=== PATIENT | male | born 1970 | race Caucasian/White ===

== ENCOUNTER 2019-03-02 13:22 | Inpatient (IN) | payer SELFPAY ==
[2019-03-02] MEDS ORDERED: Diltiazem 125 MG in Sodium Chloride 0.9% 100 ML IVPB SCH ×2 (14:15→16:30)
--- NOTE | 2019-03-02 14:25 | RAD ---
CHEST 1 VIEW PORTABLE: Date: 03/02/19 HISTORY: Dyspnea. Seizure. Left-sided deficits. FINDINGS: Mild right hemidiaphragm elevation with some associated vascular crowding. No confluent pneumonia, ov ert edema, or pleural effusion. IMPRESSION: Mild right hemidiaphragm elevation with minimal right lower lobe vascular crowding. No pneumonia, parul ma, or other significant acute process. POS: [facility]
[2019-03-02 14:32] LABS: #Basophils 0.1 thou/uL (0.0-0.2); #Eosinphils 0.3 thou/uL (0.0-0.7); #Lymphocytes 2.4 thou/uL (1.20-3.40); #Monocytes 0.6 thou/uL (0.11-0.59); #Neutrophils 4.7 thou/uL (1.40-6.50); %Basophils 0.9 % (0.0-1.0); %Eosinophils 4.1 % (0.0-10.0); %Lymphocytes 29.3 % (21.0-51.0); %Monocytes 7.5 % (0.0-10.0); %Neutrophils 58.2 % (42.0-75.0); Hemoglobin 15.6 g/dL (14.0-18.0); Mean Corpuscular HGB CONC 35.1 g/dL (32.0-36.0); Mean Corpuscular Hemoglobin 31.7 pg (27.0-31.0); Mean Corpuscular Volume 90.2 fL (78.0-98.0); Mean Platelet Volume 7.8 fL (7.4-10.4); Platelet Count 267 thou/uL (130-400); RBC Distribution Width 12.3 % (11.5-14.5); Red Blood Cell (RBC) Count 4.93 mill/uL (4.70-6.10); White Blood Cell (WBC) Count 8.1 thou/uL (4.8-10.8)
[2019-03-02 14:52] LABS: ALT (SGPT) 48 U/L (8-55); AST (SGOT) 30 U/L (5-34); Albumin 4.1 g/dL (3.5-5.0); Alkaline Phosphatase 89 U/L (40-110); Anion Gap 13 mmol/L (10-20); BUN (Urea Nitrogen) 10 mg/dL (8.9-20.6); Bilirubin, Total 0.3 mg/dL (0.2-1.2); CK (CPK) 152 U/L (30-200); Calc. Creatinine Clearance 0 mL/min (70-130); Calcium 8.7 mg/dL (7.8-10.44); Carbon Dioxide 20 mmol/L (22-29); Chloride 109 mmol/L (98-107); Estimated GFR-MDRD 79; Globulin 3.2 g/dL (2.4-3.5); Glucose 113 mg/dL (70-105); Protein, Total 7.3 g/dL (6.0-8.3); Sodium 138 mmol/L (136-145)
[2019-03-02] MEDS ORDERED: Enoxaparin Sodium 100 MG/ML SYRINGE ONE (15:41)
[2019-03-02] MEDS ORDERED: Bisacodyl 10 MG SUPP PR PRN (16:20)
[2019-03-02] MEDS ORDERED: Lorazepam 2 MG/ML VIAL SLOW IVP PRN (16:20)
[2019-03-02] MEDS ORDERED: Senokot S 8.6-50 MG TAB PO PRN (16:20)
--- NOTE | 2019-03-02 17:19 | HP ---
REASON FOR ADMISSION: New onset atrial fibrillation with RVR, partial complex seizure. 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 While he was there, the patient had focal seizures, which start with his face and affect left side extremities. This lasted for nearly 3 minutes. The patient was postictal and was not responding for nearly 7 or 8 minutes after that. He usually is awake during his seizures. 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 He had a redo surgery a year later, the 1st one was in [facility] and 2nd one was in [place]. Post these procedures, the patient has had focal seizures. EMS was summoned as his postictal state lasted for 7 to 8 minutes, which is very unusual for him, and on arrival here, the patient was found to be in atrial fibrillation with RVR. He has never had atrial fibrillation in the past. He was given Cardizem push 20 mg IV x2 and was started on 5 mg an hour drip along with one dose of Lovenox 1 mg/kg. He is currently fully oriented, moves all 4 extremities. He had slight numbness in his left lower extremity, which is slowly resolving. He has annual MRIs and follows up with neuro-oncologist in [place]. The last followup was one month back. Last MRI was in August of 2018 with no changes seen. 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 He received focal radiation for nearly 30 days after the 2nd surgery in [place]. Focal seizures, which affect left side post surgery 14 years back on his brain. CURRENT MEDICATIONS: Zonisamide 200 mg twice daily. ALLERGIES: TO CODEINE, WHICH CAUSES HIVES. PERSONAL HISTORY: Does not abuse drugs or smoke. Drinks alcohol on social occasions. Lives with his , Mrs. Pickard. Has 2 sons. FAMILY HISTORY: Mother is living and has had history of CVA. Father in his 50s with massive AK. CODE STATUS: Full. Power of ip attorney is his , Mrs. Pickard. Number to reach her is [phone]. REVIEW OF SYSTEMS: CONSTITUTIONAL: Negative for weight loss or gain, ability to conduct usual activities. SKIN: Negative for rash, itching. EYES: Negative for double vision, pain. ENT/MOUTH: Negative for nose bleeding, neck stiffness, pain, tenderness. CARDIOVASCULAR: Negative for palpitations, dyspnea on exertion, orthopnea. RESPIRATORY: Negative for shortness of breath, wheezing, cough, hemoptysis, fever or night sweats. GASTROINTESTINAL: Negative for poor appetite, abdominal pain, heartburn, nausea , vomiting, constipation, or diarrhea. GENITOURINARY: Negative for urgency, frequency, dysuria, nocturia. MUSCULOSKELETAL: Negative for pain, swelling. NEUROLOGIC/PSYCHIATRIC: Negative for anxiety, depression. ALLERGY/IMMUNOLOGIC: Negative for skin rash, bleeding tendency. PHYSICAL EXAMINATION: GENERAL: The patient is a 48-year-old male, who is currently not in any acute distress. VITAL SIGNS: Blood pressure 106/94; pulse on arrival was 159, currently around 96; respiratory rate 18 per minute; temperature 98.5 degrees Fahrenheit; saturating 97% on room air. NECK: Supple. No elevated JVD. HEENT: Eyes; extraocular muscles intact. Pupils reacting to light. Oral cavity, mucous membranes are moist. No exudates or congestion. CARDIOVASCULAR SYSTEM: S1 and S2 heard. Irregular rhythm. RESPIRATORY: Air entry 1+ bilateral. No rales or rhonchi. ABDOMEN: Soft. Bowel sounds heard. No tenderness, rigidity, or guarding. EXTREMITIES: No peripheral edema or calf tenderness. VASCULAR SYSTEM: Peripheral pulses 2+ bilateral. No ischemic ulcerations or gangrene. CENTRAL NERVOUS SYSTEM: No gross focal deficits noted. The patient moves all 4 extremities. PSYCHIATRIC SYSTEM: The patient's mood is euthymic. No hallucinations or delusions. LABORATORY DATA: White count of 8.1, H and H 15 and 44, platelet count 267, MCV is 90 with 58% neutrophils. Serum bicarb 20, BUN 10, creatinine 1.0, serum glucose 113. Liver enzymes are within normal limits. Troponin I x1 is negative. Albumin is 4.1. Chest x-ray done shows no acute infiltrate. There is mild right hemidiaphragm elevation. EKG at 1:32 p.m. shows atrial fibrillation with RVR at 137 beats per minute. There is poor R-wave progression seen. Had another EKG at 1: 43 p.m., which showed atrial fibrillation at 123 beats per minute. At 2:05 p.m. after the patient receiving two doses of Cardizem push, his EKG was still atrial fibrillation at 94 beats per minute. CLINICAL IMPRESSION AND PLAN: The patient will be admitted to telemetry for new onset atrial fibrillation with rapid ventricular response, likely from hypoxia due to seizures. He has known history of complex partial seizures affecting left side of his body with right cerebral hemisphere surgery for astrocytoma in the past. The patient states it is not unusual for him to get breakthrough seizures. He is on zonisamide 200 mg twice daily and will continue the same. He will be on a small dose aspirin, Cardizem drip 5 mg an hour, small dose of Lopressor at 12.5 mg twice daily. We will obtain echo with 2D Doppler for LV function, two more sets of troponin, and lipid profile in the morning. Urine drug screen and consultation with Dr. Bedoya for Cardiology. We will obtain zonisamide levels as well. Neurology consultation with Dr. Dayanara Roque as well if any add-on medication needs to be added for seizure control. The patient's CHADS-VASc score is essentially zero. He will be on a small dose of aspirin for now. Job ID: [id number] [facility]
[2019-03-02 17:26] LABS: Troponin I Less than 0.010 ng/mL (< 0.028)
[2019-03-02] MEDS: Acetaminophen 325 MG TAB PO PRN (18:04)
[2019-03-02 18:33] VITALS: BMI 27.9
[2019-03-02] MEDS ORDERED: Dronedarone HCl 400 MG TAB PO SCH (19:00)
--- NOTE | 2019-03-02 20:21 | CON ---
DATE OF CONSULTATION: 03/02/2019 REASON FOR CONSULTATION: Atrial fibrillation with RVR. HISTORY OF PRESENT ILLNESS: Mr. Prieto is a pleasant 48-year-old white gentleman, who comes to the hospital for a seizure. 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 He has a history of seizure disorder. He had a seizure back in September of this year. He also has a history of an astrocytoma/glioma mix tumor, which was removed from his right cerebral hemisphere about 14 years ago. He received focal radiation for this for about 30 days and need to have a second surgery eventually. These focal seizures are side effect after the surgery. He has a yearly MRI and the last time he had an MRI for surveillance of the tumor, it was in August of this year. He has been told everything looks fine. He sees a neuro-oncologist in [place]. He has never been told he has atrial fibrillation in the past. EMS was called. When they got him, they saw that he was tachycardic and he was found to be in atrial fibrillation. Currently, he is better rate controlled on the current dose of Cardizem drip. PAST MEDICAL HISTORY: 1. History of astrocytoma/glioma mix, as above. 2. Focal seizures post surgery for last 14 years. OUTPATIENT MEDICATIONS: Zonisamide 200 mg twice a day. ALLERGIES: CODEINE CAUSES HIVES. SOCIAL HISTORY: Drinks alcohol socially, had 2 beers yesterday. No tobacco or drugs. FAMILY HISTORY: Father of an LA in his 50s. REVIEW OF SYSTEMS: A 12-point review of system was also negative unless stated in the history of present illness. PHYSICAL EXAMINATION: VITAL SIGNS: Temperature 97.9, pulse 88, respiratory rate 20, saturating 94% on room air, blood pressure 120/81. GENERAL: Awake, alert, oriented x3. No distress. HEENT: Normocephalic, atraumatic. NECK: Supple. LUNGS: Clear. CARDIOVASCULAR: Irregularly irregular. Heart rate in the 80s to low 100s. No murmurs or rubs. ABDOMEN: Soft. Positive bowel sounds. EXTREMITIES: No edema. SKIN: Warm and dry. LABORATORY AND DIAGNOSTIC DATA: Laboratory work was reviewed. CBC is unremarkable. Chemistry is unremarkable. Chloride of 109, carbon dioxide of 20, anion gap of 13, normal BUN and creatinine, GFR of 79. Troponins are undetectable x2. EKG is reviewed, atrial fibrillation, RVR. Telemetry reviewed, atrial fibrillation recently, lenient rate control currently. Chest x-ray was reviewed. Mild right hemidiaphragm elevation with minimal right lower lobe vascular crowding. No pneumonia, edema, or any acute process. ASSESSMENT: 1. New-onset atrial fibrillation. 2. Seizure disorder. 3. History of brain tumor 14 years back, status post resection. Normal surveillance for last 14 years. PLAN: 1. We will start Multaq, antiarrhythmic for his atrial fibrillation. Hopefully, he will convert back to sinus in this manner. 2. We will continue subcu Lovenox full dose as if we planned to do a cardioversion before discharge, this will be required. Otherwise, his CHADS-VASc score is zero, given he has no medical conditions and he would only require an aspirin for stroke prophylaxis. 3. Hopefully, he will convert on his own with a diltiazem drip and the addition of Multaq. If this is the case, we will discharge him home on the Multaq, beta rafa, and baby aspirin tomorrow. Otherwise, if he does not convert, we will plan on a SILVIO cardioversion on Tuesday. Thank you for letting me to participate in the care of this pleasant patient. Job ID: [id number]
[2019-03-02] MEDS: Metoprolol Tartrate 25 MG TAB PO SCH (20:37)
[2019-03-02] MEDS: Famotidine 20 MG TAB PO SCH (20:38)
[2019-03-02] MEDS: Zonisamide 100 MG CAP PO SCH (20:55)
[2019-03-02 21:06] LABS: Troponin I 0.021 ng/mL (< 0.028)
[2019-03-02 21:20] LABS: Amphetamine Not Detected (NotDetected); Barbiturates Screen Not Detected (NotDetected); Benzodiazepine Screen Not Detected (NotDetected); Cocaine Metabolite Screen Not Detected (NotDetected); Medtox Control Line Valid? VALID (VALID); Medtox Reader # READER 4; Methadone Not Detected (NotDetected); Methamphetamine Not Detected (NotDetected); Opiate Screen Not Detected (NotDetected); Oxycodone Screen Not Detected (NotDetected); Phencyclidine (PCP) Not Detected (NotDetected); THC/Cannabinoid Screen Not Detected (NotDetected); Tricyclic Screen Not Detected (NotDetected)
[2019-03-03] MEDS: Acetaminophen 325 MG TAB PO PRN (01:38)
[2019-03-03 05:49] LABS: #Basophils 0.1 thou/uL (0.0-0.2); #Eosinphils 0.3 thou/uL (0.0-0.7); #Lymphocytes 3.5 thou/uL (1.20-3.40); #Monocytes 0.8 thou/uL (0.11-0.59); #Neutrophils 4.6 thou/uL (1.40-6.50); %Basophils 0.6 % (0.0-1.0); %Eosinophils 3.3 % (0.0-10.0); %Monocytes 8.3 % (0.0-10.0); %Neutrophils 49.8 % (42.0-75.0); Hemoglobin 15.1 g/dL (14.0-18.0); Mean Corpuscular HGB CONC 34.9 g/dL (32.0-36.0); Mean Corpuscular Hemoglobin 31.5 pg (27.0-31.0); Mean Corpuscular Volume 90.3 fL (78.0-98.0); Mean Platelet Volume 7.7 fL (7.4-10.4); Platelet Count 251 thou/uL (130-400); RBC Distribution Width 12.4 % (11.5-14.5); Red Blood Cell (RBC) Count 4.78 mill/uL (4.70-6.10); White Blood Cell (WBC) Count 9.2 thou/uL (4.8-10.8)
[2019-03-03 06:14] LABS: Anion Gap 12 mmol/L (10-20); BUN (Urea Nitrogen) 11 mg/dL (8.9-20.6); Calc. Creatinine Clearance 154 mL/min (70-130); Calcium 8.6 mg/dL (7.8-10.44); Carbon Dioxide 19 mmol/L (22-29); Cardiac Risk 3.5 (Less than 4.5); Chloride 114 mmol/L (98-107); Cholesterol 194 mg/dl (< 200 Desired); Estimated GFR-MDRD Greater than 90; Glucose 99 mg/dL (70-105); HDL Cholesterol 56 mg/dL (>60 Neg Risk); LDL Cholesterol, Calculated 118 mg/dL; Potassium 3.6 mmol/L (3.5-5.1); Sodium 141 mmol/L (136-145); Triglycerides 99 mg/dL (Less than 150)
[2019-03-03] MEDS ORDERED: Aspirin Chewable 81 MG TAB PO SCH (09:00)
[2019-03-03] MEDS ORDERED: Enoxaparin Sodium 40 MG/0.4 ML SYRINGE SC SCH (09:00)
[2019-03-03] MEDS: Dronedarone HCl 400 MG TAB PO SCH ×2 (09:02→09:04)
[2019-03-03] MEDS: Famotidine 20 MG TAB PO SCH (09:05)
[2019-03-03] MEDS: Metoprolol Tartrate 25 MG TAB PO SCH (09:05)
[2019-03-03] MEDS: Zonisamide 100 MG CAP PO SCH (09:05)
--- NOTE | 2019-03-03 10:41 | PDOC.HOSPP ---
- Subjective Subjective: Pt seen admitted with seizure episodes also had new on set Afib RVR currenlty feels better no more seizure in hospital - Objective Vital Signs & Weight: Vital Signs (12 hours) Temp Pulse Resp BP Pulse Ox 03/03/19 07:40 97.6 F 54 L 20 107/73 97 Weight Weight 217 lb 9.6 oz I&O: 03/02/19 03/03/19 03/04/19 06:59 06:59 06:59 Intake Total 300 Balance 300 Result Diagrams: 03/03/19 05:07 03/03/19 05:07 Hospitalist ROS - Review of Systems Constitutional: denies: fever Eyes: denies: pain ENT: denies: ear pain Respiratory: denies: cough Cardiovascular: denies: chest pain, palpitations Gastrointestinal: denies: nausea Musculoskeletal: denies: neck pain Neurological: denies: weakness - Medication Medications: Active Medications Generic Name Dose Route Start Last Admin Trade Name Freq PRN Reason Stop Dose Admin Acetaminophen 650 mg 03/02/19 16:20 03/03/19 01:38 Tylenol PO 650 mg Q4H PRN Administration Headache/Fever/Mild Pain (1-3) Aspirin 81 mg 03/03/19 09:00 03/03/19 09:03 Aspirin Chewable PO 81 mg DAILY GLORIA Administration Dronedarone 400 mg 03/03/19 08:00 03/03/19 09:04 Multaq PO 400 mg BID-WM GLORIA Administration Enoxaparin Sodium 40 mg 03/03/19 09:00 03/03/19 09:04 Lovenox SC 40 mg 09 GLORIA Administration Famotidine 20 mg 03/02/19 21:00 03/03/19 09:05 Pepcid PO 20 mg BID GLORIA Administration Metoprolol Tartrate 12.5 mg 03/02/19 21:00 03/03/19 09:05 Lopressor PO 12.5 mg BID GLORIA Administration Zonisamide 200 mg 03/02/19 21:00 03/03/19 09:05 Zonisamide PO 200 mg BID GLORIA Administration - Exam General Appearance: awake alert Eye: PERRL ENT: normocephalic atraumatic Neck: supple Heart: no murmur Respiratory: CTAB Gastrointestinal: soft Extremities: no cyanosis Skin: normal turgor Neurological: cranial nerve grossly intact Hosp A/P - Plan Break through seizure Continue on carbamazepine and Zonosamide , ativan prn , Pt being followd up neurology out patient recent MRI as per pt performed was neg , Pending neurology evaluation Afib RVR currenlty reverted into NSR this morning cardiology on board , continue amiodarone and metoprolol DVT/GI prophylaxis Plan Discussed with pt and nursing staff
[2019-03-03 11:34] VITALS: BP 112/67; TEMP 97.9
--- NOTE | 2019-03-03 16:49 | CON ---
DATE OF TELEMEDICINE CONSULT WITH ANNE MARIE DOLAN: 03-03-19 CHIEF COMPLAINT: Seizure. HISTORY OF PRESENT ILLNESS: The patient reports he had a brain tumor 15 years ago, which was resected. He has a neuro-oncologist, Dr. Rhodes, who sees him regularly. His last followup was a month ago. The patient has focal seizures mostly involving the face, arm, leg on the left side, and last seizure was in July 2018. These are not very frequent. He does have minor events, but having an entire focal seizure is not very common for him. He has been on Zonegran for many years. He thinks he might have been on carbamazepine when I mentioned that drug. He was here in [place] for a conference and he was brought here by his colleagues when he had a seizure. PAST MEDICAL HISTORY: As discussed. The patient had a history of astrocytoma in the past, and he had surgery and he has been having focal seizures since 14 years. He takes zonisamide 200 mg twice daily at home. ALLERGIES: CODEINE CAUSES HIVES. SOCIAL HISTORY: He drinks socially. No alcohol or tobacco. FAMILY HISTORY: His father in his 50s. Mother is alive, she had a stroke. The patient has 2 siblings, who are alive, and 1 brother at 55, he had congenital heart defect. His sister is 16 years older than him and brother is 7 years older, they are both healthy. The patient has 2 children, 18 and 14, and they both have autism spectrum disorder. REVIEW OF SYSTEMS: PULMONARY: Negative for shortness of breath or cough. GI: Negative for any nausea, vomiting, or diarrhea. OPHTHALMOLOGIC: Negative for any vision problems. NEUROLOGICAL: Positive for focal seizures involving left face, arm, and leg. GENITOURINARY: Negative for any bladder dysfunction. LABORATORY DATA: His workup so far, white count 9.2, hemoglobin 15.1, hematocrit 43.2, platelet count 251. Chemistry; sodium 141, potassium 3.6, chloride 114, bicarb 19, BUN 11, creatinine 0.82, glucose 99. His lipid profile is within normal limits. No central nervous system imaging has been done or available for me. His echocardiogram is normal. PHYSICAL EXAMINATION: VITAL SIGNS: Temperature 97.9, pulse 59, respiratory rate 20, O2 saturations 97 , and blood pressure 112/67. GENERAL APPEARANCE: Well-built, well-nourished man. CHEST: Clear vesicular breathing. CARDIOVASCULAR: S1 and S2 heard. No murmurs. ABDOMEN: Soft. NEUROLOGICAL: Higher intellectual functions normal. Orientation to time, place , and person. Appropriate conversation. Cranial nerves 2 through 12 normal. Extraocular movements normal. Pupils are 2 mm bilaterally, reactive to light. Tongue midline. No atrophy noted. Normal elevation of palate. Normal hearing bilaterally. Normal sensation of face bilaterally. Motor bulk normal, tone normal. Strength 5/5 in iliopsoas, hamstrings, quadriceps, ankle dorsiflexion, plantar flexion, deltoid, biceps, triceps, wrist extension and flexion, finger extension and flexion bilaterally. Sensory normal to touch bilaterally. Cerebellar, normal [id number] and [id number]. Gait not tested. IMPRESSION: The patient is a 48-year-old man with remote history of astrocytoma , but continues to have focal seizures. He does have a neuro-oncologist, who is managing him. He has not seen him for a month. The patient reports his seizures are not very frequent. At this time, his neurological examination is normal to me. It is unclear whether he has any recurrence of the lesion or whether there is any bleeding in the area of prior lesion that has triggered this new seizure or it could be just decrease in him needing more medication management for seizure control. RECOMMENDATIONS: 1. MRI of the brain. I ordered that this afternoon. The patient wanted to go home per his nurse, and I requested the patient complete this scan and leave after review of the results. 2. I added carbamazepine to his medication regimen to control his seizures in a better more aggressive fashion. 3. I will see the patient tomorrow again. Job ID: [id number] [facility]
[2019-03-03] MEDS ORDERED: carBAMazepine 200 MG TAB PO SCH (17:00)
--- NOTE | 2019-03-03 20:23 | PDOC.CPN ---
- Subjective Date: 03/03/19 Time: 14:30 Interval history: He is doing well. He converted back to sinus. - Review of Systems General: denies: fever/chills, weight/appetite/sleep changes, night sweats, fatigue Respiratory: denies: cough, congestion, shortness of breath, exercise intolerance Cardiovascular: denies: chest pain, palpitation, edema, paroxysmal nocturnal dyspnea, orthopnea Gastrointestinal: denies: nausea, vomiting, diarrhea, constipation, abd pain, GI bleeding Musculoskeletal: denies: pain, tenderness, stiffness, swelling, arthritis/ arthralgias Neurological: denies: numbness, syncope, seizure, weakness - Objective Allergies/Adverse Reactions: Allergies Allergy/AdvReac Type Severity Reaction Status Date / Time codeine Allergy Verified 03/02/19 14:12 Vital Signs & Weight: Vital Signs Temp Pulse Resp BP Pulse Ox 03/03/19 11:32 97.9 F 59 L 20 112/67 97 Weight 217 lb 9.6 oz - Physical Exam General: alert & oriented x3, no apparent distress HEENT: mucus membranes moist, normocephaly Neck: supple neck, midline trachea Cardiac: regular rate and rhythm, no murmur Lungs: clear to auscultation, no wheeze, rales, rhonchi Neuro: grossly intact, coordination normal Abdomen: active bowel sounds, soft, non-tender Skin: clear Musculoskeletal: normal range of motion, no pain - Labs Result Diagrams: 03/03/19 05:07 03/03/19 05:07 Troponin/CKMB Troponin I 0.021 ng/mL (< 0.028) 03/02/19 20:31 - Telemetry Sinus rhythms and dysrhythmias: sinus rhythm - Assessment/Plan Assessment/Plan: 1. Paroxysmal afib 2. Seizure disorder. PLAN; - Continue Multaq. - CHADs VASc score of 0, aspirin only for stroke prophylaxis. - May discharge home/- He will travel back to [place] and his has a High School Math Tutor she can have him follow up with.
--- NOTE | 2019-03-05 12:57 | DIS ---
DATE OF ADMISSION: 03/02/2019 DATE OF DISCHARGE: 03/03/2019 DISCHARGE DIAGNOSES: 1. Breakthrough seizures. 2. New onset atrial fibrillation reverted into sinus rhythm. PHYSICAL EXAMINATION: VITAL SIGNS: Blood pressure 112/67, temperature 97.9, pulse 59, respirations 20, and oxygen saturation 97%. GENERAL: The patient is alert, awake, and oriented, in no distress. CHEST: Normal vesicular breathing. HEART: Sound normal. ABDOMEN: Soft, benign, no tenderness, no organomegaly. LABORATORY DATA: CBC unremarkable. BMP unremarkable. LDL 118, TSH 1.0092. Troponins x3 negative. Urine toxicology negative. Echocardiogram, ejection fraction 55% to 60%, diastolic dysfunction grade 3. HOSPITAL COURSE: The patient, Conner Salcedo was admitted with episode of seizure. 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 Status post surgery, the patient had seizures. After that being treated outpatient, the patient was performed MRI recently, which was negative status post seizure, presented with episode of seizure. The patient was also found to in atrial fibrillation with RVR, new onset. The patient evaluated by Cariology, also Neurology. Cariology added Multaq, beta blockers, and aspirin with Lovenox. The patient reverted into sinus rhythm, cleared by Cardiology to discharge on Multaq twice a day and baby aspirin. The patient's current heart rate is 59. No beta blockers given as per Cardiology recommendation. The patient also recommended MRI brain by the Neurology and added carbamazepine. The patient recommended MRI by Neurology, however, the patient does not want to be done, as per him it was done recently, he will follow up outpatient with Neurology. The patient recommended to continue his home medication, printed, and given prescription of Tegretol. Plan discussed with the patient and nursing staff. Job ID: [id number]
== END 2019-03-03 17:15 | disposition home or self-care (01) | DRG 309 ==
LOC: ERS 13:22 → 2NO 17:48
PROVIDERS: ADMIT Internal Medicine; ATTEND Internal Medicine
DX: I48.0 Paroxysmal atrial fibrillation (principal); G40.209 Localization-related (focal) (partial) symptomatic epilepsy and epileptic syndromes with complex partial seizures, not intractable, without status epilepticus; R09.02 Hypoxemia; Z88.5 Allergy status to narcotic agent; Z88.8 Allergy status to other drugs, medicaments and biological substances; Z79.899 Other long term (current) drug therapy
CPT/HCPCS: 36415; 71045; 80048; 80053; 80061; 80203; 80306; 82550; 84443; 84484; 85025; 93005; 93306; 96365; 96372; 96376; J1650; J3490